=== PATIENT | female | born 1990 | race Hispanic/Latino ===

== ENCOUNTER 2019-03-15 15:54 | Inpatient (IN) | payer OTHER ==
[2019-03-15 16:40] VITALS: BMI 45.7
[2019-03-15] MEDS ORDERED: Ibuprofen 800 MG TAB PO PRN (17:36)
[2019-03-15] MEDS ORDERED: Diphenoxylate HCl/Atropine Tablet PO PRN (17:36)
[2019-03-15] MEDS ORDERED: hydrALAZINE 20 MG/ML VIAL SLOW IVP PRN (17:36)
[2019-03-15] MEDS ORDERED: Misoprostol 200 MCG TAB PR PRN (17:36)
[2019-03-15] MEDS ORDERED: Promethazine HCl 25 MG/ML VIAL IM PRN (17:36)
[2019-03-15] MEDS ORDERED: Acetaminophen 500 MG TAB PO PRN (17:36)
[2019-03-15] MEDS ORDERED: Carboprost 250 MCG/ML AMP IM PRN (17:36)
[2019-03-15] MEDS ORDERED: Lidocaine 1% (PF) 30 ML VIAL SC PRN (17:36)
[2019-03-15] MEDS ORDERED: HYDROcodone/Acetaminophen 5/325 mg Tablet PO PRN (17:36)
[2019-03-15] MEDS ORDERED: Ondansetron PF 4 MG/2 ML Vial IVP PRN (17:36)
[2019-03-15] MEDS ORDERED: Methylergonovine 0.2 MG/ML VIAL IM PRN (17:36)
[2019-03-15 19:12] LABS: Hemoglobin 12.9 g/dL (12.0-16.0); Mean Corpuscular HGB CONC 35.4 g/dL (32.0-36.0); Mean Corpuscular Hemoglobin 31.6 pg (27.0-31.0); Mean Corpuscular Volume 89.2 fL (78.0-98.0); Mean Platelet Volume 10.6 fL (7.4-10.4); Platelet Count 205 thou/uL (130-400); RBC Distribution Width 12.4 % (11.5-14.5); Red Blood Cell (RBC) Count 4.07 mill/uL (4.20-5.40); White Blood Cell (WBC) Count 10.3 thou/uL (4.8-10.8)
[2019-03-15] MEDS: Misoprostol 100 MCG TAB PO SCH ×2 (19:12→23:49)
[2019-03-15] MEDS: Lactated Ringer's 1,000 ML IV SCH (19:12)
[2019-03-15 19:49] LABS: Syphilis Antibody Nonreactive (Nonreactive); Syphilis Antibody Index 0.14 S/CO (<1.00 Non-Reactive)
[2019-03-15 19:51] LABS: HBSAg Index 0.31 S/CO (0-0.99); Hep B Surf Ag Non-Reactive S/CO (NonReactive)
[2019-03-16] MEDS: Butorphanol Tartrate 1 MG/ML VIAL SLOW IVP PRN ×2 (01:02→02:58)
[2019-03-16] MEDS: Lactated Ringer's 1,000 ML IV SCH (01:59)
[2019-03-16] MEDS: NS / Oxytocin 40 units/1000ml 1,000 ML IV PRN ×2 (04:20→05:58)
--- NOTE | 2019-03-16 04:25 | PDOC.EVN ---
Event Note - Event Note Event Note: [facility] 5 Called to assist with Delivery while Dr Ramos was enroute. At 0414, I was present while patient spontaneously passed the fetus with the placenta following about 30 seconds later. Overt maceration noted...cannot fully assess fetus. Known IUFD EBL about 100ml or so. Pitocin infusing
[2019-03-16] MEDS ORDERED: Ondansetron PF 4 MG/2 ML Vial IVP PRN (07:42)
[2019-03-16] MEDS ORDERED: diphenhydrAMINE 25 MG CAP PO PRN (07:42)
[2019-03-16] MEDS ORDERED: HYDROcodone/Acetaminophen 5/325 mg Tablet PO PRN ×2 (07:42)
[2019-03-16] MEDS ORDERED: Bisacodyl 10 MG SUPP PR PRN (07:42)
[2019-03-16] MEDS ORDERED: NS / Oxytocin 40 units/1000ml 1,000 ML IV SCH (07:42)
[2019-03-16] MEDS ORDERED: Ibuprofen 800 MG TAB PO SCH (07:42)
[2019-03-16] MEDS ORDERED: Milk Of Magnesia 30 ML UDCUP PO PRN (07:42)
[2019-03-16] MEDS ORDERED: Adacel (T-DAP) 0.5 ML SYRINGE IM ONE (07:42)
[2019-03-16] MEDS ORDERED: Methylergonovine 0.2 MG/ML VIAL IM PRN (07:42)
[2019-03-16] MEDS ORDERED: hydrALAZINE 20 MG/ML VIAL SLOW IVP PRN (07:42)
[2019-03-16] MEDS ORDERED: Misoprostol 200 MCG TAB VAG PRN (07:42)
[2019-03-16] MEDS ORDERED: Ferrous Sulfate 325 MG TAB PO SCH (08:00)
[2019-03-16] MEDS ORDERED: HumaLOG 300 UNITS/3 ML VIAL SC SCH ×2 (08:45→11:30)
[2019-03-16] MEDS ORDERED: Prenatal Vitamin 1 TAB PO SCH (09:00)
[2019-03-16] MEDS ORDERED: Docusate Calcium (SURFAK) 240 MG CAP PO SCH (09:00)
[2019-03-16] MEDS ORDERED: Insulin Glargine 20 UNITS in Pre-Filled Syringe 1 EACH SC SCH (09:00)
[2019-03-16 16:08] VITALS: BP 106/55; TEMP 98.4
== END 2019-03-16 17:00 | disposition home or self-care (01) | DRG 833 ==
LOC: L&D 15:54
PROVIDERS: ADMIT Family Medicine; ATTEND Family Medicine
DX: O36.4XX0 Maternal care for intrauterine death, not applicable or unspecified (principal); Z3A.27 27 weeks gestation of pregnancy
CPT/HCPCS: 36415; 36416; 85027; 86780; 86850; 86900; 86901; 87340; 88305; J0595; J1815; J2405

== ENCOUNTER 2021-02-13 15:17 | Outpatient (CLI) | payer OTHER | END 2021-02-13 15:18 | disposition home or self-care (01) | LOC: ULT 15:17 | PROVIDERS: ATTEND Nurse Practitioner | DX: O09.91 Supervision of high risk pregnancy, unspecified, first trimester (principal); Z3A.01 Less than 8 weeks gestation of pregnancy; N83.201 Unspecified ovarian cyst, right side | CPT/HCPCS: 76856 ==

== ENCOUNTER 2021-02-25 06:50 | Outpatient (CLI) | payer OTHER | END 2021-02-25 06:51 | disposition home or self-care (01) | LOC: BICULT 06:50 | PROVIDERS: ATTEND Nurse Practitioner | DX: O09.91 Supervision of high risk pregnancy, unspecified, first trimester (principal); Z3A.01 Less than 8 weeks gestation of pregnancy | CPT/HCPCS: 76856 ==

== ENCOUNTER 2022-06-18 01:45 | Inpatient (IN) | payer OTHER ==
[2022-06-18] MEDS ORDERED: Sevoflurane 250 ML INH ANEST BOTTLE ONE (02:56)
[2022-06-18] MEDS ORDERED: fentaNYL PF 100 MCG/2 ML SYRINGE ONE (03:04)
[2022-06-18] MEDS ORDERED: Dexmedetomidine 200 MCG/2 ML VIAL ONE (03:04)
[2022-06-18 03:06] LABS: INR-International Normal Ratio 1.2
[2022-06-18 03:07] LABS: PTT 34.6 sec (22.9-36.1)
[2022-06-18] MEDS ORDERED: Ondansetron PF 4 MG/2 ML Vial IVP PRN (03:36)
[2022-06-18] MEDS ORDERED: Ondansetron PF 4 MG/2 ML Vial ONE (03:36)
[2022-06-18] MEDS ORDERED: PROPOFOL 200 MG/20 ML VIAL ONE (03:36)
[2022-06-18] MEDS ORDERED: Rocuronium Bromide 10 MG/ML (10ML VIAL) ONE (03:36)
[2022-06-18] MEDS ORDERED: Lidocaine 1% PF 5 ML VIAL ONE (03:36)
[2022-06-18] MEDS ORDERED: HYDROcodone/Acetaminophen 7.5/325 mg Tablet PO PRN (03:36)
[2022-06-18] MEDS ORDERED: Sodium Chloride 0.9% 1,000 ML IV SCH ×2 (03:45→17:45)
[2022-06-18] MEDS ORDERED: HumaLOG 300 UNITS/3 ML VIAL SC PRN (03:49)
[2022-06-18] MEDS ORDERED: Dextrose 5% in Water 1,000 ML IV PRN (03:49)
[2022-06-18] MEDS ORDERED: Dextrose 50% Abboject 50 ML SYRINGE SLOW IVP PRN (03:49)
[2022-06-18] MEDS ORDERED: Insulin Regular 300 UNITS/3 ML VIAL ONE (04:27)
[2022-06-18] MEDS ORDERED: SUGAMMADEX SODIUM 200 MG/2 ML VIAL ONE (04:36)
[2022-06-18] MEDS ORDERED: Electrolyte Replacement Protocol 1 EACH FS SCH (05:30)
[2022-06-18] MEDS ORDERED: Morphine 2 MG/ML VIAL SLOW IVP PRN (05:36)
[2022-06-18] MEDS ORDERED: Cefepime 1 GM in Sodium Chloride 0.9% 100 ML IVPB SCH (06:00)
[2022-06-18] MEDS: Clindamycin/D5W 600 MG in Premix Bag 1 BAG IVPB SCH ×4 (06:09→23:30)
[2022-06-18] MEDS: Lactated Ringer's 1,000 ML IV SCH ×4 (06:09→20:59)
[2022-06-18 06:20] LABS: Mean Corpuscular Hemoglobin 29.7 pg (27.0-31.0); Mean Corpuscular Volume 92.9 fl (78.0-98.0); Mean Platelet Volume 10.4 fL (7.4-10.4); Platelet Count 199 10x3/uL (130-400); RBC Distribution Width 12.3 % (11.5-14.5); Red Blood Cell (RBC) Count 4.05 mill/uL (4.20-5.40); White Blood Cell (WBC) Count 19.2 10x3/uL (4.8-10.8)
[2022-06-18 06:22] LABS: Magnesium 1.5 mg/dL (1.6-2.6); Phosphorus 2.1 mg/dL (2.3-4.7)
[2022-06-18 06:35] LABS: Band 20 % (5-11); Lymphocytes 15 % (21-51); MDiff Complete? YES; Monocytes 4 % (0-10); Neutrophil 61 % (42-75); Platelet Morphology Comment Appears Adequate; Polychromasia SLIGHT = 2-3 cells (100X) (0-2/hpf)
[2022-06-18 06:44] LABS: ALT (SGPT) 11 U/L (8-55); AST (SGOT) 12 U/L (5-34); Albumin 3.1 g/dL (3.5-5.0); Alkaline Phosphatase 88 U/L (40-110); Anion Gap 16 mmol/L (10-20); BUN (Urea Nitrogen) 6 mg/dL (7.0-18.7); Bilirubin, Total 0.3 mg/dL (0.2-1.2); Calc. Creatinine Clearance 194 mL/min (70-130); Chloride 112 mmol/L (98-107); Estimated GFR 121; Globulin 3.6 g/dL (2.4-3.5); Glucose 283 mg/dL (70-105); Potassium 3.4 mmol/L (3.5-5.1); Protein, Total 6.7 g/dL (6.0-8.3); Sodium 134 mmol/L (136-145)
[2022-06-18] MEDS ORDERED: Magnesium 2 GM/50 ML(in water) 2 GM in Premix Bag 1 BAG IVPB SCH (06:45)
[2022-06-18 06:48] LABS: Carbon Dioxide 9 mmol/L (22-29)
[2022-06-18 07:15] LABS: Base Excess -16.5 mEq/L (-2.0 to +3.0); Calcium, Ionized (venous) 1.08 mmol/L (1.16-1.32); Chloride (VBG) 109 mmol/L (98-106); Potassium (VBG) 3.82 mmol/L (3.70-5.30); Sodium 135.1 mmol/L (133-146)
[2022-06-18] MEDS ORDERED: Sodium Bicarb 50 MEQ/50 ML VIAL IVP SCH (07:15)
[2022-06-18 07:16] LABS: Actual Bicarbonate (HCO3v) 10 mEq/L (22-28)
[2022-06-18] MEDS ORDERED: Potassium Chloride 20 MEQ TAB PO SCH (08:00)
[2022-06-18] MEDS: Vancomycin 1.5 GRAM/300 ML BAG 1.5 GM in Premix Bag 1 BAG IVPB SCH ×2 (08:29→20:58)
[2022-06-18] MEDS: Insulin Glargine 30 UNITS/0.3 ML VIAL SC SCH ×2 (08:36→20:22)
[2022-06-18] MEDS: HumaLOG 300 UNITS/3 ML VIAL SC PRN ×4 (08:37→23:55)
[2022-06-18] MEDS: Famotidine 20 MG TAB PO SCH ×2 (08:39→20:22)
[2022-06-18] MEDS ORDERED: Vancomycin 1 GM in Premix Bag 1 BAG IVPB SCH (09:00)
[2022-06-18] MEDS ORDERED: Zolpidem Tartrate 5 MG TAB PO PRN (10:30)
[2022-06-18] MEDS ORDERED: Naloxone HCl 0.4 mg/ml Vial IV PRN (10:30)
[2022-06-18] MEDS ORDERED: diphenhydrAMINE 25 MG CAP PO PRN (10:30)
[2022-06-18] MEDS ORDERED: diphenhydrAMINE 50 MG/ML VIAL IM/IV PRN (10:30)
[2022-06-18] MEDS ORDERED: HYDROmorphone/PF 10 MG in Sodium Chloride 0.9% 99 ML IVPB PRN (10:30)
[2022-06-18] MEDS ORDERED: Promethazine HCl 25 MG/ML VIAL IM PRN (10:30)
[2022-06-18 10:40] LABS: Base Excess -11.6 mEq/L (-2.0 to +3.0); Calcium, Ionized (venous) 0.88 mmol/L (1.16-1.32); Chloride (VBG) 110 mmol/L (98-106); Hemoglobin (Hb) 12.4 g/dL (11.7-15.5); Potassium (VBG) 5.33 mmol/L (3.70-5.30); Sodium 132.2 mmol/L (133-146); pH (venous) 7.42 (7.32-7.43)
[2022-06-18 10:41] LABS: Actual Bicarbonate (HCO3v) 10 mEq/L (22-28)
[2022-06-18] MEDS: Ketorolac Tromethamine 30 MG/ML VIAL IVP SCH ×3 (12:48→23:30)
[2022-06-18 13:38] LABS: Potassium 3.6 mmol/L (3.5-5.1)
[2022-06-18] MEDS: Acetaminophen 325 MG TAB PO SCH ×3 (14:30→23:30)
[2022-06-18 17:35] LABS: Anion Gap 15 mmol/L (10-20); BUN (Urea Nitrogen) 6 mg/dL (7.0-18.7); Calc. Creatinine Clearance 200 mL/min (70-130); Carbon Dioxide 10 mmol/L (22-29); Chloride 112 mmol/L (98-107); Estimated GFR 122; Glucose 231 mg/dL (70-105); Potassium 3.6 mmol/L (3.5-5.1); Sodium 133 mmol/L (136-145)
[2022-06-18] MEDS: Cefepime 2 GM in Sodium Chloride 0.9% 100 ML IVPB SCH (18:01)
[2022-06-18 20:52] LABS: Anion Gap 12 mmol/L (10-20); BUN (Urea Nitrogen) 7 mg/dL (7.0-18.7); Calc. Creatinine Clearance 224 mL/min (70-130); Calcium 7.4 mg/dL (7.8-10.44); Carbon Dioxide 14 mmol/L (22-29); Chloride 112 mmol/L (98-107); Estimated GFR 125; Glucose 198 mg/dL (70-105); Potassium 3.8 mmol/L (3.5-5.1); Sodium 134 mmol/L (136-145)
[2022-06-18 23:33] LABS: Anion Gap 10 mmol/L (10-20); BUN (Urea Nitrogen) 10 mg/dL (7.0-18.7); Calc. Creatinine Clearance 203 mL/min (70-130); Calcium 7.7 mg/dL (7.8-10.44); Carbon Dioxide 17 mmol/L (22-29); Chloride 112 mmol/L (98-107); Estimated GFR 122; Glucose 254 mg/dL (70-105); Potassium 3.5 mmol/L (3.5-5.1); Sodium 135 mmol/L (136-145)
[2022-06-19] MEDS: Lactated Ringer's 1,000 ML IV SCH ×3 (01:30→21:09)
[2022-06-19] MEDS: HumaLOG 300 UNITS/3 ML VIAL SC PRN ×3 (03:39→16:20)
[2022-06-19 04:01] LABS: Hemoglobin A1c 11.3 % (4.0-6.0)
[2022-06-19 04:24] LABS: Phosphorus 1.4 mg/dL (2.3-4.7)
[2022-06-19 04:28] LABS: Anion Gap 11 mmol/L (10-20); BUN (Urea Nitrogen) 11 mg/dL (7.0-18.7); Calc. Creatinine Clearance 224 mL/min (70-130); Calcium 7.7 mg/dL (7.8-10.44); Carbon Dioxide 15 mmol/L (22-29); Chloride 112 mmol/L (98-107); Estimated GFR 125; Glucose 263 mg/dL (70-105); Magnesium 1.9 mg/dL (1.6-2.6); Potassium 3.8 mmol/L (3.5-5.1); Sodium 134 mmol/L (136-145)
[2022-06-19] MEDS: Ketorolac Tromethamine 30 MG/ML VIAL IVP SCH ×4 (04:56→23:49)
[2022-06-19] MEDS: Cefepime 2 GM in Sodium Chloride 0.9% 100 ML IVPB SCH ×2 (04:56→17:50)
[2022-06-19] MEDS: Acetaminophen 325 MG TAB PO SCH ×4 (04:56→23:49)
[2022-06-19] MEDS: Clindamycin/D5W 600 MG in Premix Bag 1 BAG IVPB SCH ×4 (04:56→23:49)
[2022-06-19] MEDS: PHOS-NAK 1 PKT PACK PO SCH ×4 (04:57→16:19)
[2022-06-19] MEDS ORDERED: Magnesium 2 GM/50 ML(in water) 2 GM in Premix Bag 1 BAG IVPB SCH (05:00)
[2022-06-19 05:24] LABS: Band 15 % (5-11); Hypochromia SLIGHT = 6-15 cells (100X) (0-5/hpf); Lymphocytes 24 % (21-51); MDiff Complete? YES; Mean Corpuscular HGB CONC 33.5 g/dL (32.0-36.0); Mean Corpuscular Hemoglobin 30.8 pg (27.0-31.0); Mean Corpuscular Volume 91.7 fl (78.0-98.0); Mean Platelet Volume 10.1 fL (7.4-10.4); Monocytes 3 % (0-10); Neutrophil 56 % (42-75); Platelet Count 106 10x3/uL (130-400); Platelet Morphology Comment Appears Decreased; RBC Distribution Width 12.1 % (11.5-14.5); Reactive Lymphocytes 2 % (0-10); Red Blood Cell (RBC) Count 3.25 mill/uL (4.20-5.40); White Blood Cell (WBC) Count 10.4 10x3/uL (4.8-10.8)
[2022-06-19 07:29] LABS: Vancomycin, Trough 6.1 ug/mL
[2022-06-19] MEDS: Famotidine 20 MG TAB PO SCH ×2 (08:59→21:04)
[2022-06-19] MEDS: Insulin Glargine 30 UNITS/0.3 ML VIAL SC SCH ×2 (08:59→21:06)
[2022-06-19] MEDS: Vancomycin 1.5 GRAM/300 ML BAG 1.5 GM in Premix Bag 1 BAG IVPB SCH ×3 (09:19→23:59)
[2022-06-19] MEDS ORDERED: Morphine 2 MG/ML VIAL SLOW IVP PRN (10:06)
[2022-06-19] MEDS: oxyCODONE 5 MG TAB PO PRN (10:39)
[2022-06-19] MEDS: Ondansetron PF 4 MG/2 ML Vial IVP PRN (18:45)
[2022-06-20 03:50] LABS: #Lymphocytes 1.8 thou/uL (1.20-3.40); #Monocytes 0.3 thou/uL (0.11-0.59); #Neutrophils 5.3 thou/uL (1.40-6.50); %Basophils 0.1 % (0.0-1.0); %Eosinophils 0.6 % (0.0-10.0); %Lymphocytes 23.9 % (21.0-51.0); %Neutrophils 71.3 % (42.0-75.0); Hemoglobin 9.8 g/dL (12.0-16.0); Mean Corpuscular Hemoglobin 30.8 pg (27.0-31.0); Mean Corpuscular Volume 90.5 fl (78.0-98.0); Mean Platelet Volume 9.9 fL (7.4-10.4); Platelet Count 162 10x3/uL (130-400); RBC Distribution Width 11.9 % (11.5-14.5); Red Blood Cell (RBC) Count 3.18 mill/uL (4.20-5.40); White Blood Cell (WBC) Count 7.5 10x3/uL (4.8-10.8)
[2022-06-20 04:18] LABS: Anion Gap 7 mmol/L (10-20); BUN (Urea Nitrogen) 10 mg/dL (7.0-18.7); Calc. Creatinine Clearance 246 mL/min (70-130); Calcium 7.8 mg/dL (7.8-10.44); Carbon Dioxide 22 mmol/L (22-29); Chloride 109 mmol/L (98-107); Estimated GFR 128; Glucose 268 mg/dL (70-105); Magnesium 1.7 mg/dL (1.6-2.6); Phosphorus 2.7 mg/dL (2.3-4.7); Potassium 3.1 mmol/L (3.5-5.1); Sodium 135 mmol/L (136-145)
[2022-06-20] MEDS: Lactated Ringer's 1,000 ML IV SCH ×4 (04:28→22:36)
[2022-06-20] MEDS: Clindamycin/D5W 600 MG in Premix Bag 1 BAG IVPB SCH ×4 (05:47→23:27)
[2022-06-20] MEDS: Acetaminophen 325 MG TAB PO SCH ×5 (05:48→23:27)
[2022-06-20] MEDS: Cefepime 2 GM in Sodium Chloride 0.9% 100 ML IVPB SCH ×2 (05:48→17:29)
[2022-06-20] MEDS: Ketorolac Tromethamine 30 MG/ML VIAL IVP SCH (05:49)
[2022-06-20] MEDS: Potassium Chloride 20 MEQ in Premix Bag 1 BAG IVPB SCH ×2 (06:05→14:46)
[2022-06-20] MEDS ORDERED: Magnesium 2 GM/50 ML(in water) 2 GM in Premix Bag 1 BAG IVPB SCH (08:00)
[2022-06-20] MEDS ORDERED: Electrolyte Replacement Protocol 1 EACH FS SCH (09:03)
[2022-06-20] MEDS: Famotidine 20 MG TAB PO SCH ×2 (09:18→20:19)
[2022-06-20] MEDS: Insulin Glargine 30 UNITS/0.3 ML VIAL SC SCH ×2 (09:19→20:19)
[2022-06-20] MEDS: Vancomycin 1.5 GRAM/300 ML BAG 1.5 GM in Premix Bag 1 BAG IVPB SCH (09:22)
[2022-06-20 09:26] LABS: Vancomycin, Trough 8.7 ug/mL
[2022-06-20] MEDS ORDERED: fentaNYL PF 100 MCG/2 ML SYRINGE ONE ×2 (11:39→12:24)
[2022-06-20] MEDS ORDERED: Dexmedetomidine 200 MCG/2 ML VIAL ONE (11:47)
[2022-06-20] MEDS ORDERED: Ondansetron PF 4 MG/2 ML Vial ONE (12:02)
[2022-06-20] MEDS ORDERED: Metoclopramide HCl 10 MG/2 ML VIAL ONE (12:02)
[2022-06-20] MEDS ORDERED: PROPOFOL 200 MG/20 ML VIAL ONE (12:02)
[2022-06-20] MEDS ORDERED: Promethazine HCl 25 MG/ML VIAL IM PRN (13:14)
[2022-06-20] MEDS ORDERED: Ondansetron HCl/PF 4 MG/2 ML Vial IVP PRN (13:14)
[2022-06-20] MEDS ORDERED: fentaNYL 50 mcg/mL 1 mL Vial ONE (13:46)
[2022-06-20] MEDS ORDERED: Potassium Chloride 20 MEQ in Premix Bag 1 BAG IVPB SCH (16:00)
[2022-06-20] MEDS: oxyCODONE 5 MG TAB PO PRN ×2 (17:21→23:26)
[2022-06-20] MEDS: HumaLOG 300 UNITS/3 ML VIAL SC PRN (17:22)
[2022-06-20] MEDS: VANCOMYCIN 1.75 GM/500 ML BAG 1.75 GM in Premix Bag 1 BAG IVPB SCH (17:22)
[2022-06-21] MEDS: VANCOMYCIN 1.75 GM/500 ML BAG 1.75 GM in Premix Bag 1 BAG IVPB SCH (01:21)
[2022-06-21] MEDS: Lactated Ringer's 1,000 ML IV SCH ×2 (04:00→18:22)
[2022-06-21] MEDS: Acetaminophen 325 MG TAB PO SCH ×4 (05:23→22:54)
[2022-06-21] MEDS: Clindamycin/D5W 600 MG in Premix Bag 1 BAG IVPB SCH (05:23)
[2022-06-21] MEDS: Cefepime 2 GM in Sodium Chloride 0.9% 100 ML IVPB SCH (06:00)
[2022-06-21] MEDS: oxyCODONE 5 MG TAB PO PRN ×2 (06:07→10:23)
[2022-06-21 06:24] LABS: Hemoglobin 9.9 g/dL (12.0-16.0); Mean Corpuscular Hemoglobin 29.9 pg (27.0-31.0); Mean Corpuscular Volume 90.6 fl (78.0-98.0); Mean Platelet Volume 10.6 fL (7.4-10.4); Platelet Count 164 10x3/uL (130-400); RBC Distribution Width 12.1 % (11.5-14.5); Red Blood Cell (RBC) Count 3.31 mill/uL (4.20-5.40); White Blood Cell (WBC) Count 7.7 10x3/uL (4.8-10.8)
[2022-06-21 06:46] LABS: ALT (SGPT) 14 U/L (8-55); AST (SGOT) 18 U/L (5-34); Albumin 2.4 g/dL (3.5-5.0); Alkaline Phosphatase 64 U/L (40-110); Anion Gap 10 mmol/L (10-20); BUN (Urea Nitrogen) Less than 4 mg/dL (7.0-18.7); Bilirubin, Total Less than 0.2 mg/dL (0.2-1.2); Calc. Creatinine Clearance 252 mL/min (70-130); Calcium 7.6 mg/dL (7.8-10.44); Carbon Dioxide 24 mmol/L (22-29); Chloride 108 mmol/L (98-107); Estimated GFR 129; Globulin 3.3 g/dL (2.4-3.5); Glucose 149 mg/dL (70-105); Potassium 3.2 mmol/L (3.5-5.1); Protein, Total 5.7 g/dL (6.0-8.3); Sodium 139 mmol/L (136-145)
[2022-06-21 06:51] LABS: Band 3 % (5-11); Eosinophils 1 % (0-10); Lymphocytes 33 % (21-51); MDiff Complete? YES; Monocytes 7 % (0-10); Neutrophil 56 % (42-75)
[2022-06-21] MEDS ORDERED: Potassium Chloride 20 MEQ TAB PO SCH (08:00)
[2022-06-21] MEDS: Insulin Glargine 30 UNITS/0.3 ML VIAL SC SCH ×2 (08:42→20:33)
[2022-06-21] MEDS: Famotidine 20 MG TAB PO SCH ×2 (08:42→20:32)
[2022-06-21] MEDS: HumaLOG 300 UNITS/3 ML VIAL SC PRN ×2 (13:06→17:49)
[2022-06-21] MEDS: Ondansetron PF 4 MG/2 ML Vial IVP PRN (13:08)
[2022-06-21] MEDS: cefTRIAXone\\ROCEPHIN 2 GM in Sodium Chloride 0.9% 100 ML IVPB SCH (17:49)
[2022-06-22] MEDS: Lactated Ringer's 1,000 ML IV SCH ×5 (05:10→22:41)
[2022-06-22] MEDS: Acetaminophen 325 MG TAB PO SCH ×3 (05:11→17:25)
[2022-06-22] MEDS: Insulin Glargine 30 UNITS/0.3 ML VIAL SC SCH ×2 (08:45→21:34)
[2022-06-22] MEDS: Famotidine 20 MG TAB PO SCH ×2 (08:45→20:16)
[2022-06-22] MEDS: oxyCODONE 5 MG TAB PO PRN (09:00)
[2022-06-22 09:11] LABS: #Basophils 0.1 thou/uL (0.0-0.2); #Eosinphils 0.1 thou/uL (0.0-0.7); #Monocytes 0.5 thou/uL (0.11-0.59); #Neutrophils 5.7 thou/uL (1.40-6.50); %Basophils 0.6 % (0.0-1.0); %Eosinophils 1.1 % (0.0-10.0); %Lymphocytes 31.8 % (21.0-51.0); %Monocytes 5.7 % (0.0-10.0); %Neutrophils 60.8 % (42.0-75.0); Hemoglobin 11.5 g/dL (12.0-16.0); Mean Corpuscular HGB CONC 32.7 g/dL (32.0-36.0); Mean Corpuscular Hemoglobin 29.6 pg (27.0-31.0); Mean Corpuscular Volume 90.3 fl (78.0-98.0); Mean Platelet Volume 9.7 fL (7.4-10.4); Platelet Count 219 10x3/uL (130-400); RBC Distribution Width 12.2 % (11.5-14.5); Red Blood Cell (RBC) Count 3.88 mill/uL (4.20-5.40); White Blood Cell (WBC) Count 9.4 10x3/uL (4.8-10.8)
[2022-06-22 09:31] LABS: Anion Gap 12 mmol/L (10-20); BUN (Urea Nitrogen) Less than 4 mg/dL (7.0-18.7); Calc. Creatinine Clearance 252 mL/min (70-130); Calcium 8.6 mg/dL (7.8-10.44); Carbon Dioxide 24 mmol/L (22-29); Chloride 105 mmol/L (98-107); Estimated GFR 129; Glucose 124 mg/dL (70-105); Potassium 3.3 mmol/L (3.5-5.1); Sodium 138 mmol/L (136-145)
[2022-06-22] MEDS ORDERED: Potassium Chloride 20 MEQ TAB PO SCH (11:00)
[2022-06-22] MEDS: cefTRIAXone\\ROCEPHIN 2 GM in Sodium Chloride 0.9% 100 ML IVPB SCH (17:25)
[2022-06-22] MEDS: fentaNYL 50 mcg/mL 1 mL Vial SLOW IVP PRN (20:16)
[2022-06-23] MEDS: Acetaminophen 325 MG TAB PO SCH ×5 (01:37→23:16)
[2022-06-23] MEDS: Lactated Ringer's 1,000 ML IV SCH ×2 (05:47→19:59)
[2022-06-23] MEDS: oxyCODONE 5 MG TAB PO PRN ×2 (05:59→17:45)
[2022-06-23] MEDS ORDERED: PROPOFOL 200 MG/20 ML VIAL ONE (09:30)
[2022-06-23] MEDS ORDERED: Metoclopramide HCl 10 MG/2 ML VIAL ONE (09:30)
[2022-06-23] MEDS ORDERED: Lidocaine 1% PF 5 ML VIAL ONE (09:30)
[2022-06-23] MEDS ORDERED: Ketorolac Tromethamine 30 MG/ML VIAL ONE (09:30)
[2022-06-23] MEDS ORDERED: Ondansetron PF 4 MG/2 ML Vial ONE (09:30)
[2022-06-23] MEDS ORDERED: diphenhydrAMINE 50 MG/ML VIAL ONE (09:30)
[2022-06-23] MEDS ORDERED: Fentanyl 250 MCG/5 ML VIAL ONE (09:38)
[2022-06-23] MEDS ORDERED: cefTRIAXone (ROCEPHIN) 1 GM VIAL ONE (10:28)
[2022-06-23] MEDS ORDERED: fentaNYL 50 mcg/mL 1 mL Vial ONE (11:47)
[2022-06-23 12:02] VITALS: BMI 42.5
[2022-06-23 14:26] LABS: #Basophils 0.1 thou/uL (0.0-0.2); #Eosinphils 0.1 thou/uL (0.0-0.7); #Lymphocytes 2.7 thou/uL (1.20-3.40); #Monocytes 0.5 thou/uL (0.11-0.59); #Neutrophils 5.3 thou/uL (1.40-6.50); %Basophils 1.1 % (0.0-1.0); %Eosinophils 1.4 % (0.0-10.0); %Lymphocytes 31.1 % (21.0-51.0); %Monocytes 5.8 % (0.0-10.0); %Neutrophils 60.7 % (42.0-75.0); Hemoglobin 11.4 g/dL (12.0-16.0); Mean Corpuscular Hemoglobin 31.8 pg (27.0-31.0); Mean Corpuscular Volume 90.9 fl (78.0-98.0); Mean Platelet Volume 9.8 fL (7.4-10.4); Platelet Count 182 10x3/uL (130-400); RBC Distribution Width 12.3 % (11.5-14.5); Red Blood Cell (RBC) Count 3.59 mill/uL (4.20-5.40); White Blood Cell (WBC) Count 8.7 10x3/uL (4.8-10.8)
[2022-06-23 14:47] LABS: Anion Gap 14 mmol/L (10-20); BUN (Urea Nitrogen) Less than 4 mg/dL (7.0-18.7); Calc. Creatinine Clearance 279 mL/min (70-130); Calcium 8.2 mg/dL (7.8-10.44); Carbon Dioxide 25 mmol/L (22-29); Chloride 105 mmol/L (98-107); Estimated GFR 132; Glucose 118 mg/dL (70-105); Potassium 3.7 mmol/L (3.5-5.1); Sodium 140 mmol/L (136-145)
[2022-06-23] MEDS: cefTRIAXone\\ROCEPHIN 2 GM in Sodium Chloride 0.9% 100 ML IVPB SCH (17:30)
[2022-06-23] MEDS: Insulin Glargine 30 UNITS/0.3 ML VIAL SC SCH ×2 (17:48→20:09)
[2022-06-23] MEDS: Famotidine 20 MG TAB PO SCH ×2 (17:48→20:09)
[2022-06-24] MEDS: Acetaminophen 325 MG TAB PO SCH ×4 (05:10→23:49)
[2022-06-24 06:30] LABS: #Eosinphils 0.1 thou/uL (0.0-0.7); #Lymphocytes 2.7 thou/uL (1.20-3.40); #Monocytes 0.5 thou/uL (0.11-0.59); #Neutrophils 3.5 thou/uL (1.40-6.50); %Basophils 0.5 % (0.0-1.0); %Eosinophils 1.7 % (0.0-10.0); %Lymphocytes 39.2 % (21.0-51.0); %Monocytes 7.2 % (0.0-10.0); %Neutrophils 51.5 % (42.0-75.0); Hemoglobin 11.3 g/dL (12.0-16.0); Mean Corpuscular HGB CONC 31.9 g/dL (32.0-36.0); Mean Corpuscular Hemoglobin 29.4 pg (27.0-31.0); Mean Platelet Volume 9.3 fL (7.4-10.4); Platelet Count 256 10x3/uL (130-400); RBC Distribution Width 12.3 % (11.5-14.5); Red Blood Cell (RBC) Count 3.85 mill/uL (4.20-5.40); White Blood Cell (WBC) Count 6.8 10x3/uL (4.8-10.8)
[2022-06-24 06:46] LABS: Anion Gap 12 mmol/L (10-20); BUN (Urea Nitrogen) 6 mg/dL (7.0-18.7); Calc. Creatinine Clearance 263 mL/min (70-130); Calcium 8.6 mg/dL (7.8-10.44); Carbon Dioxide 26 mmol/L (22-29); Chloride 103 mmol/L (98-107); Estimated GFR 129; Glucose 125 mg/dL (70-105); Potassium 3.4 mmol/L (3.5-5.1); Sodium 138 mmol/L (136-145)
[2022-06-24] MEDS ORDERED: Potassium Chloride 20 MEQ TAB PO SCH (08:00)
[2022-06-24] MEDS: Famotidine 20 MG TAB PO SCH ×2 (08:45→21:38)
[2022-06-24] MEDS: Insulin Glargine 30 UNITS/0.3 ML VIAL SC SCH ×2 (08:46→21:38)
[2022-06-24] MEDS: cefTRIAXone\\ROCEPHIN 2 GM in Sodium Chloride 0.9% 100 ML IVPB SCH (17:07)
[2022-06-24] MEDS: HumaLOG 300 UNITS/3 ML VIAL SC PRN (17:13)
[2022-06-24] MEDS: Cephalexin 250 MG CAP PO SCH (23:49)
[2022-06-25 05:37] LABS: #Basophils 0.1 thou/uL (0.0-0.2); #Eosinphils 0.1 thou/uL (0.0-0.7); #Lymphocytes 2.9 thou/uL (1.20-3.40); #Monocytes 0.4 thou/uL (0.11-0.59); #Neutrophils 3.3 thou/uL (1.40-6.50); %Basophils 0.9 % (0.0-1.0); %Eosinophils 1.7 % (0.0-10.0); %Lymphocytes 42.6 % (21.0-51.0); %Monocytes 6.1 % (0.0-10.0); %Neutrophils 48.8 % (42.0-75.0); Hemoglobin 12.3 g/dL (12.0-16.0); Mean Corpuscular HGB CONC 34.1 g/dL (32.0-36.0); Mean Corpuscular Volume 90.9 fl (78.0-98.0); Mean Platelet Volume 9.1 fL (7.4-10.4); Platelet Count 261 10x3/uL (130-400); RBC Distribution Width 12.2 % (11.5-14.5); Red Blood Cell (RBC) Count 3.97 mill/uL (4.20-5.40); White Blood Cell (WBC) Count 6.8 10x3/uL (4.8-10.8)
[2022-06-25] MEDS: Acetaminophen 325 MG TAB PO SCH ×3 (05:45→17:20)
[2022-06-25] MEDS: Cephalexin 250 MG CAP PO SCH ×3 (05:46→17:20)
[2022-06-25 06:00] LABS: Anion Gap 14 mmol/L (10-20); BUN (Urea Nitrogen) 8 mg/dL (7.0-18.7); Calc. Creatinine Clearance 223 mL/min (70-130); Calcium 8.9 mg/dL (7.8-10.44); Carbon Dioxide 26 mmol/L (22-29); Chloride 102 mmol/L (98-107); Estimated GFR 126; Glucose 159 mg/dL (70-105); Potassium 3.7 mmol/L (3.5-5.1); Sodium 138 mmol/L (136-145)
[2022-06-25] MEDS: Insulin Glargine 30 UNITS/0.3 ML VIAL SC SCH (08:15)
[2022-06-25] MEDS: Famotidine 20 MG TAB PO SCH (08:15)
[2022-06-25] MEDS ORDERED: Saccharomyces boulardii 250 MG CAP PO SCH (09:00)
[2022-06-25] MEDS: fentaNYL 50 mcg/mL 1 mL Vial SLOW IVP PRN (12:04)
[2022-06-25 16:32] VITALS: BP 119/80; TEMP 98.5
[2022-06-26 12:57] LABS: Analyzer IN Cardio OR; Base Excess (BEa) -14.9 mEq/L (-2.0 to +3.0); CO2 Tension 29.8 mmHg (35.0-45.0); Calcium, Ionized (arterial) 1.15 mmol/L (1.12-1.30); Carboxyhemoglobin (COHb) 0.6 gm% (0.0-3.0); Hemoglobin (Hb) 12.3 g/dL (12.0-16.0); Potassium - ABG Lab 3.52 mmol/L (3.70-5.30); pH, Arterial 7.21 (7.35-7.45)
[2022-06-26 13:01] LABS: Actual Bicarbonate (HCO3a) 11.6 mEq/L (22-28); Puncture Site Arterial Line
== END 2022-06-25 18:40 | disposition home or self-care (01) | DRG 853 ==
LOC: ERS 01:45 → SDC/OP 03:17 → CCU 03:18 → SURG A 06-20 07:54
PROVIDERS: ADMIT Surgery; ATTEND Internal Medicine
PROC: 0JBC0ZZ Excision of Pelvic Region Subcutaneous Tissue and Fascia, Open Approach (ICD-10-PCS; principal; 2022-06-18)
PROC: 3E03329 Introduction of Other Anti-infective into Peripheral Vein, Percutaneous Approach (ICD-10-PCS; 2022-06-18)
PROC: 0J9C0ZZ Drainage of Pelvic Region Subcutaneous Tissue and Fascia, Open Approach (ICD-10-PCS; 2022-06-20)
PROC: 0J9C0ZZ Drainage of Pelvic Region Subcutaneous Tissue and Fascia, Open Approach (ICD-10-PCS; 2022-06-23)
DX: A40.1 Sepsis due to streptococcus, group B (principal); E11.10 Type 2 diabetes mellitus with ketoacidosis without coma; M72.6 Necrotizing fasciitis; E87.20 Acidosis, unspecified; N76.4 Abscess of vulva; Z68.41 Body mass index [BMI] 40.0-44.9, adult; E87.1 Hypo-osmolality and hyponatremia; Z20.822 Contact with and (suspected) exposure to COVID-19; E11.65 Type 2 diabetes mellitus with hyperglycemia; E87.6 Hypokalemia; E87.8 Other disorders of electrolyte and fluid balance, not elsewhere classified; E66.01 Morbid (severe) obesity due to excess calories; E83.39 Other disorders of phosphorus metabolism; E88.09 Other disorders of plasma-protein metabolism, not elsewhere classified; Z79.4 Long term (current) use of insulin; Z79.899 Other long term (current) drug therapy
CPT/HCPCS: 36415; 36416; 80048; 80053; 80202; 82010; 82805; 83036; 83605; 83735; 84100; 84145; 85025; 85610; 85730; 86850; 86900; 86901; 87070; 87077; 87205; 97139; 99284; J0692; J0696; J1170; J1200; J1650; J1815; J1885; J2272; J2405; J2550; J2704; J2765; J3010; J3370; J3475; J3480; J3490; J7050; J7120

== ENCOUNTER 2024-11-01 07:21 | Outpatient (CLI) | payer OTHER | END 2024-11-01 07:22 | disposition home or self-care (01) | LOC: ULT 07:21 | PROVIDERS: ATTEND Physician Assistant Medical | DX: K80.20 Calculus of gallbladder without cholecystitis without obstruction (principal); R93.5 Abnormal findings on diagnostic imaging of other abdominal regions, including retroperitoneum; R16.0 Hepatomegaly, not elsewhere classified; R10.11 Right upper quadrant pain; R10.12 Left upper quadrant pain; K76.0 Fatty (change of) liver, not elsewhere classified | CPT/HCPCS: 76700 ==

== ENCOUNTER 2024-11-22 08:04 | Day surgery (SDC) | payer OTHER ==
[2024-11-17 15:30] VITALS: BMI 43.0
[2024-11-22] MEDS ORDERED: PROPOFOL 20 ML ONE (09:14)
[2024-11-22] MEDS ORDERED: Rocuronium Bromide 10 MG/ML (10ML VIAL) ONE (09:15)
[2024-11-22] MEDS ORDERED: Lidocaine 1% PF 5 ML VIAL ONE (09:15)
[2024-11-22] MEDS ORDERED: Bupivacaine 0.25% HCL 30 ML VIAL ONE (09:44)
[2024-11-22] MEDS ORDERED: fentaNYL PF 100 MCG/2 ML SYRINGE ONE (09:49)
[2024-11-22] MEDS ORDERED: CEFAZOLIN 2 GM VIAL ONE (10:01)
[2024-11-22] MEDS ORDERED: Glycopyrrolate 0.2 MG/ML 5 ML SYRINGE ONE (10:27)
[2024-11-22] MEDS ORDERED: Ondansetron PF 4 MG/2 ML Vial ONE (10:27)
[2024-11-22] MEDS ORDERED: SUGAMMADEX SODIUM 200 MG/2 ML VIAL ONE (10:46)
[2024-11-22] MEDS ORDERED: Ketorolac Tromethamine 30 MG (1 mL) VIAL ONE (10:53)
[2024-11-22] MEDS ORDERED: HYDROcodone/Acetaminophen 5/325 mg Tablet ONE (12:56)
== END 2024-11-22 12:30 | disposition home or self-care (01) ==
LOC: SDC 08:04
PROVIDERS: ATTEND Surgery
PROC: 0FT44ZZ Resection of Gallbladder, Percutaneous Endoscopic Approach (ICD-10-PCS; principal; 2024-11-22)
DX: K81.1 Chronic cholecystitis (principal)
CPT/HCPCS: 47562; C9776; 36416; 88304; C1889; J0169; J0665; J1100; J1885; J2405; J2704; J3010; S2900